=== PATIENT | female | born 1975 ===

== ENCOUNTER 2018-11-05 09:24 | Inpatient (IN) | payer BC ==
[2018-10-10 15:07] VITALS: BMI 29.0
[2018-11-05] MEDS ORDERED: Vasopressin 20 Units/ml Inj ONE (11:30)
[2018-11-05] MEDS ORDERED: ceFOXitin IV 1 gm/100 ml in NS 1 GM/100 ML BAG ONE (11:30)
[2018-11-05] MEDS ORDERED: Propofol 10 mg/ml Inj (20 ML) ONE ×2 (12:08→12:09)
[2018-11-05] MEDS ORDERED: Midazolam 2 MG/2 ML VIAL ONE (12:08)
[2018-11-05] MEDS ORDERED: Rocuronium 10 mg/ml (5 ml) ONE ×2 (12:10→13:41)
[2018-11-05] MEDS ORDERED: HYDROmorphone 0.5 mg/0.5 ml ISec IVP PRN ×2 (14:03→17:12)
[2018-11-05] MEDS ORDERED: Methylene Blue 10 mg/mL(10ml) IV ONE (14:14)
[2018-11-05] MEDS ORDERED: Lactated Ringer's 1,000 ML IV SCH (14:15)
[2018-11-05] MEDS ORDERED: Bupivacaine 0.25% 20 ML INJ IJ ONE (14:22)
--- NOTE | 2018-11-05 14:57 | PCM.SURG1 ---
Surgeon's Initial Post Op Note - Surgeon's Notes Surgeon: Dr. Diggs, Intraoperative Consult General surgery Dr. Dejesus Tie Maker: Dr. Pablo Type of Anesthesia: General Endo Anesthesia Administered By: Dr. Chairez Pre-Operative Diagnosis: 43 yo with Menorrhagia, Irregular menstrual cycle , Fibroid uterus Operative Findings: Av uterus 18 wks gestation , multiple adhesion Post-Operative Diagnosis: same as above an addition to multiple adhesion Operation Performed: Exp. Laparotomy, Supracervical hysterectomy, Right Salpingo-oophorectomy , Left Salpingectomy, Multiple adhesion Specimen/Specimens Removed: Uterus , Bilateral tubes and right ovaries Estimated Blood Loss: EBL {In ML}: 200 Blood Products Given: N/A Drains Used: No Drains Post-Op Condition: Good Date of Surgery/Procedure: 11/05/18 Time of Surgery/Procedure: 14:57
[2018-11-05] MEDS ORDERED: Oxycodone/Acetaminophen 5/325 mg Tab PO PRN (14:58)
[2018-11-05 15:33] LABS: BASO % 0.1 % (0.0-2.0); EOS # 0.1 K/uL (0.0-0.7); EOS % 0.3 % (0.0-4.0); HEMOGLOBIN 11.8 g/dL (11.0-16.0); LYMPH # 1.9 K/uL (1.0-4.3); LYMPH % 8.5 % (20.0-40.0); MEAN CELL VOLUME 89.5 fL (81.0-99.0); MEAN CORPUSCULAR HEMOGLOBIN 28.7 pg (27.0-31.0); MEAN CORPUSCULAR HGB CONC 32.1 g/dL (33.0-37.0); MEAN PLATELET VOLUME 9.1 fL (7.2-11.7); MONO # 0.9 K/uL (0.0-0.8); MONO % 3.9 % (0.0-10.0); NEUT # 19.6 K/uL (1.8-7.0); NEUT % 87.2 % (50.0-75.0); PLATELET COUNT 304 K/uL (130-400); RBC 4.11 Mil/uL (3.80-5.20); RED CELL DISTRIBUTION WIDTH 14.5 % (11.5-14.5); WHITE BLOOD COUNT 22.5 K/uL (4.8-10.8)
[2018-11-05] MEDS ORDERED: Lactated Ringer's 1,000 ML IV ONE (16:00)
[2018-11-05] MEDS ORDERED: HYDROmorphone 0.5 mg/0.5 ml ISec ONE (17:11)
[2018-11-05 17:19] LABS: LYMPHOCYTE 7 % (20-40); MONOCYTE 3 % (0-10); NEUTROPHIL 90 % (50-75); PLATELET ESTIMATE NORMAL (NORMAL); TOTAL CELLS COUNTED 100
[2018-11-05] MEDS: Oxycodone/Acetaminophen 5/325 mg Tab PO PRN (22:50)
[2018-11-05] MEDS: Lactated Ringer's 1,000 ML IV SCH (23:01)
[2018-11-06] MEDS: Oxycodone/Acetaminophen 5/325 mg Tab PO PRN ×3 (05:16→22:19)
--- NOTE | 2018-11-06 06:12 | OP ---
PROCEDURE DATE: 11/05/2018 PREOPERATIVE DIAGNOSIS: This is a 43-year-old female with history of chronic pelvic pain, menorrhagia, and irregular menstrual period as well as fibroid uterus and failure of medical therapy. POSTOPERATIVE DIAGNOSES: This is a 43-year-old female with a history of chronic pelvic pain, menorrhagia, and irregular menstrual period as well as fibroid uterus and failure of medical therapy with additional finding of multiple adhesions. PROCEDURES: Exploratory laparotomy, supracervical hysterectomy, right salpingo-oophorectomy, left salpingectomy, and lysis of adhesions performed by Dr. Dejesus, general surgeon. SURGEON: Vidya Diggs MD INTRAOPERATIVE CONSULTATION BY: Syed Dejesus MD COMPOSITOR APPRENTICE: Juve Pablo MD COMPLICATIONS: None. ESTIMATED BLOOD LOSS: Approximately 300 mL. URINE OUTPUT: 300 mL. SPECIMENS: Uterus as well as bilateral tubes and right ovary. DESCRIPTION OF PROCEDURE: The patient was informed of the risk factors, benefits, and alternatives of the procedure. Risk factors included infection, bleeding, damage to the surrounding organs and tissues, complication from anesthesia and possible . The patient also understood that once we removed the uterus, she will not able to become . She was well aware of that. Also, she was aware that the recurrence of chronic pelvic pain can occur due to adhesion. All questions were answered and informed consent was obtained. Risk factors were explained, but not limited to. Once the informed consent was obtained, she was then taken to the operating room in which, the patient was placed in supine position, given general anesthesia, and prepped and draped in the usual sterile fashion. A Pfannenstiel incision was made approximately 2 cm above the symphysis pubis and extended sharply to the rectus fascia. The fascia was then excised bilaterally with a curved Park scissors, and the muscles of the anterior abdominal wall were in the midline by sharp and blunt dissection. The peritoneum was grasped with two pickups, elevated, and entered sharply with the scalpel. The pelvis was examined with the findings that noted that she had multiple adhesions. Due to the adhesions, intraoperative consult was called. Lysis of adhesion was performed by the general surgeon. The round ligaments on both sides were clamped, transected, and suture ligated with 0 Vicryl. The anterior leaf of the broad ligament was excised along the bladder reflection of the midline from both sides. The bladder was then gently dissected off the lower uterine segment, and the cervix was . The right infundibulopelvic ligament was doubly clamped, transected,and suture ligated with 0 Vicryl. Hemostasis was visualized. The uterine arteries were skeletonized bilaterally, clamped with Herminio clamps, transected, and suture ligated with 0 Vicryl but prior to that, the left ovarian ligament was doubly clamped, transected, and suture ligated. The uterus was amputated with the cautery. The cervical stump was closed with [id number] sutures of 0 Vicryl. The remainder of the cervical stump was closed. Lysis of adhesions was performed by the general surgeon. Excellent hemostasis was noted. In that particular incidence, the pelvis was irrigated copiously with warm normal saline. All laparotomy sponges and instruments were removed from the abdomen. The fascia was then closed with a running 0 Vicryl and hemostasis was assured. The skin was closed with 3-0 Monocryl. Sponge, lap, and needle counts were correct x 2. The patient was then taken to the recovery room in stable condition. Vidya Diggs MD
[2018-11-06 08:39] LABS: HEMOGLOBIN 11.1 g/dL (11.0-16.0); MEAN CELL VOLUME 87.6 fL (81.0-99.0); MEAN CORPUSCULAR HEMOGLOBIN 29.2 pg (27.0-31.0); MEAN CORPUSCULAR HGB CONC 33.4 g/dL (33.0-37.0); MEAN PLATELET VOLUME 9.2 fL (7.2-11.7); RBC 3.79 Mil/uL (3.80-5.20); RED CELL DISTRIBUTION WIDTH 14.1 % (11.5-14.5); WHITE BLOOD COUNT 12.7 K/uL (4.8-10.8)
--- NOTE | 2018-11-06 11:38 | CP.PCM.PN ---
Subjective - Date & Time of Evaluation Date of Evaluation: 11/06/18 Time of Evaluation: 16:00 - Subjective Subjective: Pt seen and examined per Dr. Diggs's request Doing well and Feeling fine Pain controlled with present pain medication orders Denies flatus or BM yet Not drinking enough water Using IS appropiately Objective - Vital Signs/Intake and Output Vital Signs (last 24 hours): Temp Pulse Resp BP Pulse Ox 97.4 F L 82 20 102/65 100 11/06/18 08:12 11/06/18 08:12 11/06/18 08:12 11/06/18 08:12 11/06/18 08:12 Intake and Output: 11/06/18 11/06/18 06:59 18:59 Intake Total 125 1840 Output Total 1400 Balance 125 440 - Medications Medications: Current Medications Clonidine HCl (Catapres) 0.1 mg PO BID [facility] Last Admin: 11/06/18 10:07 Dose: 0.1 mg Docusate Sodium (Colace) 100 mg PO BID [facility] Last Admin: 11/06/18 09:54 Dose: 100 mg Hydromorphone/Sodium Chloride (Dilaudid Robotics Engineer) 6 mg IV Q4H PRN; Protocol PRN Reason: Pain, moderate (4-7) Lactated Ringer's (Lactated Ringer's) 1,000 mls @ 110 mls/hr IV .Q9H6M [facility] Lactated Ringer's (Lactated Ringer's) 1,000 mls @ 125 mls/hr IV .Q8H [facility] Last Admin: 11/05/18 23:01 Dose: 125 mls/hr Ibuprofen (Motrin Tab) 800 mg PO Q6 PRN PRN Reason: Pain, moderate (4-7) Last Admin: 11/06/18 09:57 Dose: 800 mg Ondansetron HCl (Zofran Inj) 4 mg IVP ONCE PRN PRN Reason: Nausea/Vomiting Oxycodone/Acetaminophen (Percocet 5/325 Mg Tab) 1 tab PO Q6 PRN PRN Reason: Pain, severe (8-10) Stop: 11/08/18 14:59 Oxycodone/Acetaminophen (Percocet 5/325 Mg Tab) 2 tab PO Q6H PRN PRN Reason: Pain, severe (8-10) Stop: 11/08/18 20:09 Last Admin: 11/06/18 05:16 Dose: 2 tab - Labs Labs: 11/06/18 08:20 - Constitutional Appears: Well, No Acute Distress - Head Exam Head Exam: NORMAL INSPECTION - Neck Exam Neck Exam: Full ROM - Respiratory Exam Respiratory Exam: Clear to Ausculation Bilateral, NORMAL BREATHING PATTERN - Cardiovascular Exam Cardiovascular Exam: REGULAR RHYTHM - GI/Abdominal Exam GI & Abdominal Exam: Hypoactive Bowel Sounds - Extremities Exam Extremities Exam: Full ROM, Normal Inspection - Neurological Exam Neurological Exam: Alert, Oriented x3 - Skin Skin Exam: Dry, Intact, Normal Color, Warm Assessment and Plan - Assessment and Plan (Free Text) Assessment: POD # 1 S/P Exploratoy Laparotomy, Supracervical Hysterectomy,RSO, LS, BRIANNA Stable and Satisfactory condition and recovery Tolerating diet well Pain controlled Post-Op H&H 11..2 Plan: Advance post-op care Encouraged po water intake Continue using IS Encourage ambulation later today Will Hep lock IV at this time
[2018-11-06] MEDS ORDERED: Morphine 1 mg/ml preservative-free Inj(Duramorph) ONE (21:27)
[2018-11-07] MEDS: Oxycodone/Acetaminophen 5/325 mg Tab PO PRN (05:23)
[2018-11-07 07:55] VITALS: BP 114/77; PULSE 90; RESP 18; TEMP 98.6; O2SAT 98
--- NOTE | 2018-11-07 12:24 | CP.PCM.PN ---
Subjective - Date & Time of Evaluation Date of Evaluation: 11/07/18 Time of Evaluation: 12:20 - Subjective Subjective: OBGYN Progress Note Patient seen and examined per Dr. Diggs's request. Patient seen and examined at bedside this morning. Patient states her pain is decreasing from yesterday. She is able to go OOB without issues. She has been passing gas, but no BM yet. Also tolerating a regular diet. Patient states she feels ready to go home. Objective - Vital Signs/Intake and Output Vital Signs (last 24 hours): Temp Pulse Resp BP Pulse Ox 98.6 F 90 18 114/77 98 11/07/18 07:58 11/07/18 07:58 11/07/18 07:58 11/07/18 07:58 11/07/18 07:58 - Medications Medications: Current Medications Clonidine HCl (Catapres) 0.1 mg PO BID [facility] Last Admin: 11/07/18 09:38 Dose: 0.1 mg Docusate Sodium (Colace) 100 mg PO BID [facility] Last Admin: 11/07/18 09:38 Dose: 100 mg Hydromorphone/Sodium Chloride (Dilaudid De Ionizer Operator) 6 mg IV Q4H PRN; Protocol PRN Reason: Pain, moderate (4-7) Lactated Ringer's (Lactated Ringer's) 1,000 mls @ 110 mls/hr IV .Q9H6M [facility] Lactated Ringer's (Lactated Ringer's) 1,000 mls @ 125 mls/hr IV .Q8H [facility] Last Admin: 11/05/18 23:01 Dose: 125 mls/hr Ibuprofen (Motrin Tab) 800 mg PO Q6 PRN PRN Reason: Pain, moderate (4-7) Last Admin: 11/07/18 11:51 Dose: 800 mg Ondansetron HCl (Zofran Inj) 4 mg IVP ONCE PRN PRN Reason: Nausea/Vomiting Oxycodone/Acetaminophen (Percocet 5/325 Mg Tab) 1 tab PO Q6 PRN PRN Reason: Pain, severe (8-10) Stop: 11/08/18 14:59 Last Admin: 11/07/18 10:37 Dose: 1 tab Oxycodone/Acetaminophen (Percocet 5/325 Mg Tab) 2 tab PO Q6H PRN PRN Reason: Pain, severe (8-10) Stop: 11/08/18 20:09 Last Admin: 11/07/18 05:23 Dose: 2 tab - Labs Labs: 11/06/18 08:20 - Constitutional Appears: Well, Non-toxic - Head Exam Head Exam: ATRAUMATIC, NORMAL INSPECTION - Neck Exam Neck Exam: Normal Inspection - Cardiovascular Exam Cardiovascular Exam: REGULAR RHYTHM - GI/Abdominal Exam GI & Abdominal Exam: Soft, Normal Bowel Sounds Additional comments: Dressing in lower abdomen removed. Sutures clean, dry and intact. - Neurological Exam Neurological Exam: Alert, Awake, Oriented x3 - Psychiatric Exam Psychiatric exam: Normal Affect, Normal Mood - Skin Skin Exam: Dry, Intact, Normal Color, Warm Assessment and Plan - Assessment and Plan (Free Text) Assessment: 43 year old female s/p ex-lap, supracervical hysterectomy, right salpingoophrectomy, and left salpingectomy POD2. -continue with motrin and percocet PRN for pain control -continue with bowel regimen colace -patient is stable for discharge, and Dr. Diggs approves of discharge. Medication rx in chart from Dr. Diggs. case discussed with Dr. Oscar Cesar PGY1
--- NOTE | 2018-11-07 12:46 | CP.PCM.DIS ---
<Aga Cesar - Last Filed: 11/07/18 12:46> Provider - Provider Date of Admission: 11/05/18 09:24 Attending physician: Vidya Diggs MD Time Spent in preparation of Discharge (in minutes): 45 Hospital Course - Lab Results Lab Results: Most Recent Lab Values WBC 12.7 K/uL (4.8-10.8) H 11/06/18 08:20 RBC 3.79 Mil/uL (3.80-5.20) L 11/06/18 08:20 Hgb 11.1 g/dL (11.0-16.0) 11/06/18 08:20 Hct 33.2 % (34.0-47.0) L 11/06/18 08:20 MCV 87.6 fL (81.0-99.0) 11/06/18 08:20 MCH 29.2 pg (27.0-31.0) 11/06/18 08:20 MCHC 33.4 g/dL (33.0-37.0) 11/06/18 08:20 RDW 14.1 % (11.5-14.5) 11/06/18 08:20 Plt Count 336 K/uL (130-400) 11/06/18 08:20 MPV 9.2 fL (7.2-11.7) 11/06/18 08:20 Neut % (Auto) 87.2 % (50.0-75.0) H 11/05/18 15:21 Lymph % (Auto) 8.5 % (20.0-40.0) L 11/05/18 15:21 [place] % (Auto) 3.9 % (0.0-10.0) 11/05/18 15:21 Eos % (Auto) 0.3 % (0.0-4.0) 11/05/18 15:21 Baso % (Auto) 0.1 % (0.0-2.0) 11/05/18 15:21 Neut # (Auto) 19.6 K/uL (1.8-7.0) H 11/05/18 15:21 Lymph # (Auto) 1.9 K/uL (1.0-4.3) 11/05/18 15:21 [place] # (Auto) 0.9 K/uL (0.0-0.8) H 11/05/18 15:21 Eos # (Auto) 0.1 K/uL (0.0-0.7) 11/05/18 15:21 Baso # (Auto) 0.0 K/uL (0.0-0.2) 11/05/18 15:21 Neutrophils % (Manual) 90 % (50-75) H 11/05/18 15:21 Lymphocytes % (Manual) 7 % (20-40) L 11/05/18 15:21 Monocytes % (Manual) 3 % (0-10) 11/05/18 15:21 Platelet Estimate Normal (NORMAL) 11/05/18 15:21 RBC Morphology Normal 11/05/18 15:21 Blood Type O POSITIVE 11/05/18 10:30 Antibody Screen Negative 11/05/18 10:30 - Hospital Course Hospital Course: This is a 43 year old female under the care of Dr. Diggs, OBGYN, with PMHx of uterine fibroids and menorrhagia who has failed outpatient medical therapy. On 11/05, patient had a ex-lap, supracervical hysterectomy, right salpingoophrectomy, and left salpingectomy. She also had adhesions removed by Dr. Dejesus, general surgeon. Patient was seen and examined by the OB hospitalist on POD1 and POD2 upon request from Dr. Diggs. Her post-op pain has been decreasing, she has been able to tolerate a regular diet, and she has been passing gas. On POD2, per Dr. Diggs, patient can be discharged. Medication rx in chart from Dr. Diggs. Discharge Exam - Head Exam Head Exam: ATRAUMATIC, NORMAL INSPECTION - Eye Exam Eye Exam: EOMI, Normal appearance - Respiratory Exam Respiratory Exam: Clear to PA & Lateral, NORMAL BREATHING PATTERN, UNREMARKABLE - Cardiovascular Exam Cardiovascular Exam: REGULAR RHYTHM - GI/Abdominal Exam GI & Abdominal Exam: Normal Bowel Sounds, Unremarkable Additional comments: lower abdominal incision clean, dry and intact. With sutures. - Neurological Exam Neurological exam: Alert, Oriented x3 - Psychiatric Exam Psychiatric exam: Normal Affect, Normal Mood - Skin Skin Exam: Dry, Intact, Normal Color, Warm Discharge Plan - Follow Up Plan Condition: GOOD Disposition: HOME/ ROUTINE Instructions: How to Prevent Surgical Site Infections, Hysterectomy (DC) Additional Instructions: Avoid heavy lifting (greater than 10 lbs) for 4 weeks. Take all prescribed medicine exactly as directed. Continue deep breathing, ambulating, and going out of bed to chair. Keep the incisions clean and dry. Avoid constipation, which causes straining to pass stool. Eat fruits, vegetables, and whole-grain foods. If you are having a significantly increased amount of pain or bleeding, please call Dr. Diggs and go to the nearest emergency room. Thank you and be well. <Erica Moore - Last Filed: 11/07/18 14:43> Provider - Provider Date of Admission: 11/05/18 09:24 Attending physician: Vidya Diggs MD Hospital Course - Lab Results Lab Results: Most Recent Lab Values WBC 12.7 K/uL (4.8-10.8) H 11/06/18 08:20 RBC 3.79 Mil/uL (3.80-5.20) L 11/06/18 08:20 Hgb 11.1 g/dL (11.0-16.0) 11/06/18 08:20 Hct 33.2 % (34.0-47.0) L 11/06/18 08:20 MCV 87.6 fL (81.0-99.0) 11/06/18 08:20 MCH 29.2 pg (27.0-31.0) 11/06/18 08:20 MCHC 33.4 g/dL (33.0-37.0) 11/06/18 08:20 RDW 14.1 % (11.5-14.5) 11/06/18 08:20 Plt Count 336 K/uL (130-400) 11/06/18 08:20 MPV 9.2 fL (7.2-11.7) 11/06/18 08:20 Neut % (Auto) 87.2 % (50.0-75.0) H 11/05/18 15:21 Lymph % (Auto) 8.5 % (20.0-40.0) L 11/05/18 15:21 [place] % (Auto) 3.9 % (0.0-10.0) 11/05/18 15:21 Eos % (Auto) 0.3 % (0.0-4.0) 11/05/18 15:21 Baso % (Auto) 0.1 % (0.0-2.0) 11/05/18 15:21 Neut # (Auto) 19.6 K/uL (1.8-7.0) H 11/05/18 15:21 Lymph # (Auto) 1.9 K/uL (1.0-4.3) 11/05/18 15:21 [place] # (Auto) 0.9 K/uL (0.0-0.8) H 11/05/18 15:21 Eos # (Auto) 0.1 K/uL (0.0-0.7) 11/05/18 15:21 Baso # (Auto) 0.0 K/uL (0.0-0.2) 11/05/18 15:21 Neutrophils % (Manual) 90 % (50-75) H 11/05/18 15:21 Lymphocytes % (Manual) 7 % (20-40) L 11/05/18 15:21 Monocytes % (Manual) 3 % (0-10) 11/05/18 15:21 Platelet Estimate Normal (NORMAL) 11/05/18 15:21 RBC Morphology Normal 11/05/18 15:21 Blood Type O POSITIVE 11/05/18 10:30 Antibody Screen Negative 11/05/18 10:30 - Hospital Course Hospital Course: Pt seen and examined with Dr. Cesar and agree with her assessment, findings and POC as described above. - Date & Time of H&P Date of H&P: 11/07/18 Time of H&P: 14:00
== END 2018-11-07 13:51 | disposition home or self-care (01) | DRG 743 ==
LOC: C.9S 09:24 → C.4M 19:34
PROVIDERS: ADMIT Obstetrics & Gynecology; ATTEND Obstetrics & Gynecology
PROC: 0UT90ZL Resection of Uterus, Supracervical, Open Approach (ICD-10-PCS; 2018-11-05)
PROC: 0UT70ZZ Resection of Bilateral Fallopian Tubes, Open Approach (ICD-10-PCS; 2018-11-05)
PROC: 0UT00ZZ Resection of Right Ovary, Open Approach (ICD-10-PCS; principal; 2018-11-05 11:00)
DX: D25.1 Intramural leiomyoma of uterus (principal); D25.2 Subserosal leiomyoma of uterus; N92.0 Excessive and frequent menstruation with regular cycle